=== PATIENT | female | born 1960 | race Caucasian/White ===

== ENCOUNTER 2022-08-26 21:51 | Emergency (ER) | payer BC ==
[~2022-08-26] VITALS: Wt 99.8 kg
[~2022-08-26 21:51] MED LIST: AMOXICILLIN500 M2 PO; KEFLEX500 M1 PO; ONE DAILY WOME1 EACH PO; PREDNICOT20 MG PO; PREDNISONE10 MG PO; PREVACID30 MG PO; SYNTHROID0.025 MG PO
[2022-08-26] MEDS ORDERED: PREDNISONE20 M1 PO (22:26)
[2022-08-26] MEDS ORDERED: CLINDAMYCIN HC300 MG PO (22:26)
== END 2022-08-26 22:42 | disposition home or self-care (01) ==
LOC: ED 21:51
DX: L53.9 Erythematous condition, unspecified (principal); Z88.0 Allergy status to penicillin; Z79.899 Other long term (current) drug therapy; Z90.89 Acquired absence of other organs